=== PATIENT | male | born 1955 | race Two or more races ===

== ENCOUNTER 2020-12-28 07:20 | Outpatient (CLI) | payer OTHER ==
[~2020-12-28 07:20] MED LIST: TOBREX 0.30.15 MG/DR OP
== END 2020-12-28 07:42 | disposition home or self-care (01) ==
LOC: MRI 07:20
DX: M48.061 Spinal stenosis, lumbar region without neurogenic claudication (principal); M62.89 Other specified disorders of muscle; M62.830 Muscle spasm of back
CPT/HCPCS: 72148